=== PATIENT | male | born 1945 | race American Indian/Alaskan Native ===

== ENCOUNTER 2020-01-29 11:32 | Outpatient (CLI) | payer MEDICAID ==
--- NOTE | 2020-01-29 14:46 | Nuclear Medicine Report ---
NUCLEAR MEDICINE BONE SCAN, WHOLE BODY INDICATION: PROSTATE CANCER. TECHNIQUE: 26.3 mCi of Tc-99m MDP were injected IV. Whole body images were obtained. COMPARISON: CT abdomen and pelvis same day. FINDINGS: Skeletal Structures: No focal areas of asymmetric activity. Mild, relatively symmetric, periarticular activity which is likely degenerative. Skeletal Lesions: None. Soft Tissues: Normal. Kidneys: Normal, symmetric activity. Additional Findings: No abnormal radiotracer activity seen within the chronic L3 compression fracture seen on pelvic CT. IMPRESSION: 1. No significant scintigraphic abnormality. Signer Name: Matti Ridley MD Signed: 01/29/2020 2:41 PM Workstation Name: [email or web address]
--- NOTE | 2020-01-29 16:10 | Cat Scan Report ---
CT ABDOMEN AND PELVIS WITHOUT CONTRAST INDICATION / CLINICAL INFORMATION: PROSTATE CANCER. TECHNIQUE: Axial CT images were obtained through the abdomen and pelvis without IV contrast. All CT scans at [facility] location are performed using CT dose reduction for ALARA by means of automated exposure control. COMPARISON: Nuclear medicine bone scan 01/29/2020 FINDINGS: LOWER CHEST: Mild coronary artery atherosclerotic calcification. HEPATOBILIARY: No significant abnormality. PANCREAS: No significant abnormality. SPLEEN: No significant abnormality. ADRENALS: No significant abnormality. GENITOURINARY: No significant abnormality. GASTROINTESTINAL/MESENTERY: No significant abnormality. RETROPERITONEUM: No significant adenopathy. REPRODUCTIVE ORGANS: Prostatomegaly. VASCULAR: Mild atherosclerotic calcification without acute abnormality. SKELETAL SYSTEM: Mild wedge type superior endplate compression deformity at L3. No aggressive osseous lesion. ADDITIONAL FINDINGS: Small left-sided fat-containing inguinal hernia. 1 cm metallic focus in the angelita on of the peripheral right hepatic lobe. Doubtful clinical significance. IMPRESSION: 1. No evidence of metastatic disease in this patient with history of prostate cancer. 2. Mild superior endplate compression deformity at L3. Finding is age indeterminate. Recommend clinic al correlation and comparison with prior imaging if available. 3. Additional findings as above. Signer Name: Alex Aviles MD Signed: 01/29/2020 4:06 PM Workstation Name: [id number]
== END 2020-01-29 11:33 | disposition home or self-care (01) ==
LOC: EDBD 11:32 → NM 11:32
PROVIDERS: ATTEND Urology
DX: C61 Malignant neoplasm of prostate (principal); I25.10 Atherosclerotic heart disease of native coronary artery without angina pectoris; M43.8X6 Other specified deforming dorsopathies, lumbar region; K40.90 Unilateral inguinal hernia, without obstruction or gangrene, not specified as recurrent; I10 Essential (primary) hypertension
CPT/HCPCS: 74176; 78306; A9503